=== PATIENT | female | born 1990 | race Caucasian/White ===

== ENCOUNTER → 2018-10-26 | Outpatient (REF) ==
[~2018-10-26] MED LIST: ACYCLOVIR400 MG PO; AMOXICILLIN500 MG PO; AMOXICILLIN875 MG PO; AURALGAN15 ML/BTL OT; BENZONATATE200 MG PO; BUSPAR10 M1 PO; CIPRO500 MG PO; CORTISPORIN OTI10 M2 AU; CORTISPORIN OTI10 ML AS; CYCLESSA PO; DARVOCET-N 100100 MG OR; MEDDOSEPAK PO; MIRALAX3350 N1 PO; VELIVET PO
== END | disposition home or self-care (01) | DRG 951 ==
LOC: LAB 10:55
PROVIDERS: ATTEND Obstetrics & Gynecology Female Pelvic Medicine and Reconstructive Surgery
DX: Z32.01 Encounter for pregnancy test, result positive (principal)

== ENCOUNTER 2021-08-29 19:18 | Emergency (ER) | payer BC ==
[~2021-08-29] VITALS: Ht 167.6 cm; Wt 60.0 kg
[2021-08-29 22:38] VITALS: BP 123/81
== END 2021-08-29 22:49 | disposition home or self-care (01) | DRG 103 ==
LOC: ED 19:18
DX: G43.B0 Ophthalmoplegic migraine, not intractable (principal)